=== PATIENT | female | born 1970 | race Caucasian/White ===

== ENCOUNTER 2022-06-16 20:53 | Emergency (ER) | payer OTHER ==
--- NOTE | 2022-06-16 21:00 | NUR ---
Called out patient's name several times in the ER waiting room - no answer.
--- NOTE | 2022-06-16 21:15 | NUR ---
Called out patient's name several times in the ER waiting room - no answer.
--- NOTE | 2022-06-16 21:37 | NUR ---
Called out patient's name several times in the ER waiting room - no answer.
--- NOTE | 2022-06-16 21:37 | NUR ---
Patient left without being seen. ER Dr. Lees made aware.
== END 2022-06-16 21:37 | disposition left against medical advice (07) ==
LOC: SED 20:53
DX: R10.9 Unspecified abdominal pain (principal); Z53.21 Procedure and treatment not carried out due to patient leaving prior to being seen by health care provider